=== PATIENT | male | born 1995 | race Caucasian/White ===

== ENCOUNTER 2021-09-12 16:36 | Inpatient (IN) | payer MEDICAID, SELFPAY ==
[2021-09-12 16:37] VITALS: BP 120/73; PULSE 132; RESP 18; TEMP 36.8; BMI 22.8
--- NOTE | 2021-09-12 16:49 | EX.ED.SAOD ---
HPI History of Present Illness Chief Complaint: Substance Abuse Informant: patient Narrative Narrative: Patient presents requesting help with detox from heroin. He has been using intermittently for the past 5 years. He was recently through 1 detox program and was clean for 6 months. He snorts heroin and denies injecting any drugs. He states he has recently been using some meth as well. He denies alcohol use. 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 He states he was cleared by cardiology a year ago and taken off all of his cardiac medications. [facility] Medical History Myocarditis Allergy/AdvReac Type Severity Reaction Status Date / Time No Known Allergies Allergy Verified 09/12/21 16:39 Social History (Updated 09/12/21 @ 16:[address] Heather Wild MD) alcohol intake: never substance use type: heroin and methamphetamine ROS ROS ED Constitutional Constitutional ED: Denies chills or fever(s) Eyes Eyes: Denies change in vision or discharge from eye(s) ENT ENT ED: Denies discharge from eye(s), rhinorrhea or sore throat Cardiovascular Cardiovascular: Denies chest pain or palpitations Respiratory/Chest Respiratory/Chest: Denies cough or dyspnea Gastrointestinal Gastrointestinal: Denies abdominal pain, diarrhea, nausea or vomiting Genitourinary Genitourinary ED: Denies difficulty urinating or dysuria Musculoskeletal Musculoskeletal: Denies back pain or extremity pain Integumentary Denies Abrasions or rash Neurologic Neurologic: Denies headache(s) or weakness Psychiatric Psychiatric: Reports anxiety; Denies depression Allergic/Immunologic Allergic/Immunologic ED: Denies lip swelling or urticaria EXAM Physical Exam Const Vital Signs: 09/12/21 16:37 09/12/21 16:37 Temperature 98.2 F 98.2 F Temperature Source Temporal Temporal Pulse Rate 132 H 132 H Respiratory Rate 18 18 Blood Pressure 120/73 120/73 Blood Pressure Mean 88 88 Positive well nourished and well developed General Appearance ED: well developed HEENT Reports normocephalic and head/scalp atraumatic Eyes PERRL and EOMs intact bilaterally Neck supple Chest Wall inspection of chest normal and palpation of chest normal Resp normal respiratory effort and clear to auscultation bilaterally Cardio regular rhythm Rate: tachycardic GI normal to inspection, nondistended, normoactive bowel sounds Palpation: soft Back/Spine no CVA tenderness Extremity normal to inspection Neuro oriented x3 and no sensory deficits noted Sensorium / Orientation: alert Motor Exam: strength 5/5 throughout Psych mental status grossly normal Skin no rashes or lesions noted MDM MDM MDM Narrative Medical decision making narrative: Patient agrees to the rules of the detox program. Lab work for addiction medicine is obtained. Lab Data Labs: Laboratory Results - last 24 hr 09/12/21 17:03 WBC 9.3 RBC 4.72 Hgb 14.7 Hct 42.9 MCV 90.9 MCH 31.1 MCHC 34.3 RDW Std Deviation 41.0 RDW Coeff of David 12.3 Plt Count 399 MPV 9.0 Immature Gran % (Auto) 0.300 Neut % (Auto) 65.0 Lymph % (Auto) 25.2 [place] % (Auto) 6.7 Eos % (Auto) 2.0 Baso % (Auto) 0.8 Absolute Neuts (auto) 6.0 Absolute Lymphs (auto) 2.34 Nucleated RBC % 0 Treatment and Re-Evaluation Narrative: I spoke with the hospitalist and patient be admitted to the MedSur floor. Discharge Plan Triage Chief Complaint: Substance Abuse ED Provider: Heather iWld Dx/Rx/DC Orders Clinical Impression: Desire for detoxification Primary Care Provider: Care Physician,No Primary Referrals: Care Physician,No Primary [Primary Care Provider] - Disposition Disposition: Acute Care Hospital [facility]
--- NOTE | 2021-09-12 16:56 | PCM.HP.STD ---
Documented by User: Dr. 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 Patient states has been using since he was proximately 17 or 18 years old. He initially started with snorting Dilaudid and then progressed quickly to heroin. He also has intermittently used methamphetamines and states he is using them as of recently. He has gone through detox previously and was sober for about 6 months but unfortunately relapsed due to social and emotional stressors. He reports his last use was approximately 2 days ago. He is currently experiencing some back pain, anxiety, and restless leg with a jittery feeling. Upon arrival to emergency department his vital signs showed a temperature of 98.2, blood pressure 120/73, heart rate 132, respiration rate 18, and oxygen sat was 98% room air. His CBC was unremarkable. Chemistry panel showed transaminitis with an AST of 55 and ALT of 105. His alcohol level was normal and a urine tox screen was pending IT FIELD TECHNICIAN Student Patient states that he started to use Dilaudid when he was 17 or 18, but quickly transition to using only heroin. Patient states that he has also used methamphetamine intermittently in the past, and reports he had a previous diagnosis of myocarditis related to this. The patient states that he was cleared by cardiology a year ago and taken off all of his cardiac medications. As of recently, patient states that he has once again started using meth as well. Patient states that he has only ever snorted these substances, and adamantly denies any IV use. Patient states his last use of both meth and heroin was 2 days ago. Patient states that he uses 1 g at least of each of these daily. Symptomatically, the patient's only complaints are of feeling jittery and a lower back ache, which he says is always associated with his withdrawal. The patient also notes that he recently went through a detox program in [place] and was clean for 6 months. On arrival to the emergency department, the the patient's vital signs were temperature of 98.2 Fahrenheit, blood pressure 120/73, heart rate 132, respirations of 18, and oxygen saturation 98% on room air. Patient's CBC is unremarkable. Chemistry panel shows slight elevation in transaminases with AST of 55 and ALT of 105. Alcohol is negative. Urine drug screen is pending. [facility] Medical History Myocarditis Home Medications NK 09/12/21 [History Last Taken Unknown] Allergy/AdvReac Type Severity Reaction Status Date / Time No Known Allergies Allergy Verified 09/12/21 16:39 Family History no significant family his no significant family history Surgical History no surgical history no surgical history Social History household members: other details: Mother housing: house current occupational status: employed current occupation: laborer plumbing Smoking Status: Current every day smoker tobacco type: cigarettes Smoking packs per day: 0.5 Smoking cigarettes per day: 10.0 alcohol intake: never substance use type: heroin and methamphetamine ROS Constitutional Constitutional: Denies anorexia, change in weight, chills, fatigue, fever(s), malaise, night sweats, weakness or other Eyes Eyes: Denies blurry vision, change in eye color, change in vision, discharge from eye(s), double vision, erythema, eye pain, loss of vision or other ENT HEENT: Denies abnormal hearing, dysphagia, ear pain, epistaxis, headache(s), hearing loss, nasal congestion, nasal discharge, post nasal drip, sinus pressure, sore throat or other Cardiovascular Cardiovascular: Denies chest pain, claudication, dyspnea on exertion, edema, lightheadedness, orthopnea, palpitations, paroxysmal nocturnal dyspnea, rapid heart rate, syncope or other Respiratory/Chest Respiratory/Chest: Denies dyspnea, excessive phlegm production, hemoptysis, productive cough, shortness of breath at rest, shortness of breath with exertion, wheezing or other Gastrointestinal Gastrointestinal: Denies abdominal pain, coffee ground emesis, constipation, diarrhea, dyspepsia, hematemesis, hematochezia, loose stools, melena, nausea, vomiting or other Genitourinary Genitourinary: Denies burning urination, difficulty urinating, dysuria, hematuria, nocturia, urinary frequency, urinary hesitancy, urinary incontinence, urinary urgency or other Musculoskeletal Musculoskeletal: Reports back pain and other Details: Restless leg ; Denies arthralgias, joint pain, joint stiffness, joint swelling, myalgias or neck pain Neurologic Neurologic: Denies abnormal gait, abnormal speech, confusion, disequilibrium, dizziness, focal weakness, headache(s), numbness, paresthesias, seizure-like activity, seizures, syncope, tingling, tremor(s) or other Psychiatric Psychiatric: Reports anxiety and other Details: Complains of being jittery ; Denies depression, homicidal ideation or suicidal ideation Endocrine Endocrinology: Denies change in body appearance, cold intolerance, excessive sweating, heat intolerance, polydipsia, polyuria or other Hematologic/Lymphatic Hematologic/Lymphatic: Denies anemia, easy bleeding, easy bruising, lymphadenopathy or other Allergic/Immunologic Allergic/Immunologic: Denies rhinitis, hives, eczemia, asthma or other Vital Signs Vital Signs Vital Signs: 09/12/21 16:37 09/12/21 16:37 Temperature 98.2 F 98.2 F Temperature Source Temporal Temporal Pulse Rate 132 H 132 H Respiratory Rate 18 18 Blood Pressure 120/73 120/73 Blood Pressure Mean 88 88 Weight Weight: 53.2 kg Body Mass Index (BMI) 22.8 Physical Exam Const alert, oriented x3, no apparent distress, average body habitus, healthy appearing and well nourished Constitutional Narrative: Young, white male sitting up in bed, alert and interactive. Patient appears comfortable and nontoxic. General Appearance: cooperative HEENT normocephalic, head/scalp atraumatic, hearing grossly normal bilaterally, moist oral mucous membranes and oropharynx normal HEENT Narrative: Very poor dentition. Mallampati 2. No thrush. Resp normal respiratory effort, no retractions, no use of accessory muscles and clear to auscultation bilaterally Auscultation: Negative for crackles, rales, rhonchi or wheezes GI normal to inspection, nondistended, normoactive bowel sounds, soft to palpation, non-tender and non-distended; Negative for hepatosplenomegaly Extremity normal to inspection, full ROM and no clubbing, cyanosis or edema Skin no rashes or lesions noted, no wounds, skin turgor normal, no jaundice, no petechiae and no mottling Neuro oriented x3, CN's II-XII intact bilaterally, moves all extremities and no focal motor deficits Neuro Narrative: No sensory deficits Speech: speech normal Motor Exam: strength 5/5 throughout Psych affect normal Mood & Affect: anxious; Negative for depressed Results Lab / Micro Data Result Diagrams: 09/12/21 17:03 09/12/21 17:03 Assessment & Plan Assessment/Plan (1) Desire for detoxification: (2) Opiate abuse, continuous: (3) Heroin abuse: (4) Methamphetamine abuse: (5) Tobacco abuse: (6) Transaminitis: PLAN: Plan Dr. Christie Opiate detox/acute opiate withdrawal -Patient uses both heroin and methamphetamines -Always has snorted denies any history of IVDU -Last use was 2 days prior -Typically uses about 1 g daily -Start Subutex per COWS protocol -Tox screen is pending -Supportive medications -180 consultation Transaminitis -Etiology unclear -Patient adamantly denies history of IVDU -Repeat in a.m. -If remains elevated may need further work-up Tobacco abuse -Patient typically smokes 1/2 pack cigarettes a day -Recommend cessation -Nicotine patch 14 mg daily History of myocarditis -Patient has been cleared by cardiology and no longer is on and make medication -Patient reports this was from previous meth use DVT prophylaxis -Low risk -SCDs CODE STATUS -full code Charges/Coding Visit Charges Inpatient E&M: 91502 Init Hosp L2 Documented by User: FRANCIS DE LA CRUZ 09/12/21 18:46 HPI - General General Date of Admission: 09/12/21 Date of Service: 09/12/21 HPI Narrative MALIHA CHURCHILL, is a 25 M who presents to [facility] emergency department on 09/12/2021 requesting opiate detox. Patient states that he started to use Dilaudid when he was 17 or 18, but quickly transition to using only heroin. Patient states that he has also used methamphetamine intermittently in the past, and reports he had a previous diagnosis of myocarditis related to this. The patient states that he was cleared by cardiology a year ago and taken off all of his cardiac medications. As of recently, patient states that he has once again started using meth as well. Patient states that he has only ever snorted these substances, and adamantly denies any IV use. Patient states his last use of both meth and heroin was 2 days ago. Patient states that he uses 1 g at least of each of these daily. Symptomatically, the patient's only complaints are of feeling jittery and a lower back ache, which he says is always associated with his withdrawal. The patient also notes that he recently went through a detox program in [place] and was clean for 6 months. On arrival to the emergency department, the the patient's vital signs were temperature of 98.2 Fahrenheit, blood pressure 120/73, heart rate 132, respirations of 18, and oxygen saturation 98% on room air. Patient's CBC is unremarkable. Chemistry panel shows slight elevation in transaminases with AST of 55 and ALT of 105. Alcohol is negative. Urine drug screen is pending. [facility] Medical History Myocarditis Home Medications NK 09/12/21 [History Last Taken Unknown] Allergy/AdvReac Type Severity Reaction Status Date / Time No Known Allergies Allergy Verified 09/12/21 16:39 Family History no significant family his Surgical History no surgical history Social History household members: other details: Mother housing: house current occupational status: employed current occupation: laborer plumbing Smoking Status: Current every day smoker tobacco type: cigarettes Smoking packs per day: 0.5 Smoking cigarettes per day: 10.0 alcohol intake: never substance use type: heroin and methamphetamine ROS Constitutional Constitutional: Denies anorexia, change in weight, chills, fatigue, fever(s), malaise, night sweats, weakness or other Eyes Eyes: Denies blurry vision, change in eye color, change in vision, discharge from eye(s), double vision, erythema, eye pain, loss of vision or other ENT HEENT: Denies abnormal hearing, dysphagia, ear pain, epistaxis, headache(s), hearing loss, nasal congestion, nasal discharge, post nasal drip, sinus pressure, sore throat or other Cardiovascular Cardiovascular: Denies chest pain, claudication, dyspnea on exertion, edema, lightheadedness, orthopnea, palpitations, paroxysmal nocturnal dyspnea, rapid heart rate, syncope or other Respiratory/Chest Respiratory/Chest: Reports cough; Denies dyspnea, excessive phlegm production, hemoptysis, productive cough, shortness of breath at rest, shortness of breath with exertion, wheezing or other Gastrointestinal Gastrointestinal: Denies abdominal pain, coffee ground emesis, constipation, diarrhea, dyspepsia, hematemesis, hematochezia, loose stools, melena, nausea, vomiting or other Musculoskeletal Musculoskeletal: Reports back pain; Denies arthralgias, joint pain, joint stiffness, joint swelling, myalgias, neck pain or other Neurologic Neurologic: Denies abnormal gait, abnormal speech, confusion, disequilibrium, dizziness, focal weakness, headache(s), numbness, paresthesias, seizure-like activity, seizures, syncope, tingling, tremor(s) or other Psychiatric Psychiatric: Reports anxiety and other Details: Complains of feeling jittery. ; Denies depression, homicidal ideation or suicidal ideation Endocrine Endocrinology: Denies change in body appearance, cold intolerance, excessive sweating, heat intolerance, polydipsia, polyuria or other Hematologic/Lymphatic Hematologic/Lymphatic: Denies anemia, easy bleeding, easy bruising, lymphadenopathy or other Allergic/Immunologic Allergic/Immunologic: Denies rhinitis, hives, eczemia, asthma or other Physical Exam Const alert, oriented x3, no apparent distress and average body habitus Constitutional Narrative: Young, white male sitting up in bed, alert and interactive. Patient appears comfortable and nontoxic. Patient's giving officer present at bedside. General Appearance: cooperative HEENT normocephalic, head/scalp atraumatic, hearing grossly normal bilaterally, moist oral mucous membranes and oropharynx normal HEENT Narrative: Poor dentition. Mallampati 2. No thrush. Eyes PERRL, EOMs intact bilaterally and conjunctivae normal Eyes Narrative: No scleral icterus. Neck no lymphadenopathy, supple, no JVD and no carotid bruits Neck Narrative: Trachea midline, no thyroid enlargement. Resp normal respiratory effort, no retractions, no use of accessory muscles and clear to auscultation bilaterally Auscultation: Negative for crackles, rales, rhonchi or wheezes Cardio regular rhythm, S1 normal heart sound, S2 normal heart sound, no murmurs, no rub, no gallops, no clicks and no JVD Cardio Narrative: Tachycardic. GI normal to inspection, nondistended, normoactive bowel sounds, soft to palpation, non-tender and non-distended; Negative for hepatosplenomegaly Palpation: Negative for tender, guarding or hernia Extremity normal to inspection, full ROM and no clubbing, cyanosis or edema Extremity Narrative: Peripheral pulses 2+ bilaterally. Skin no rashes or lesions noted, no wounds, skin turgor normal, no jaundice, no petechiae and no mottling Skin Narrative: Numerous tattoos. Neuro oriented x3, CN's II-XII intact bilaterally, moves all extremities and no focal motor deficits Speech: speech normal Motor Exam: strength 5/5 throughout Psych affect normal Psych Narrative: Patient is a pleasant, and cooperative. Appears somewhat anxious. Mood & Affect: anxious; Negative for depressed Results Lab / Micro Data Attestation: I reviewed the patient's lab results. Result Diagrams: 09/12/21 17:03 09/12/21 17:03 Assessment & Plan Assessment/Plan (1) Desire for detoxification: (2) Opiate abuse, continuous: (3) Heroin abuse: (4) Methamphetamine abuse: (5) Tobacco abuse: (6) Transaminitis: PLAN: Plan Dr. Christie Opiate detox/acute opiate withdrawal -Patient uses both heroin and methamphetamines -Always has snorted denies any history of IVDU -Last use was 2 days prior -Typically uses about 1 g daily -Start Subutex per COWS protocol -Tox screen is pending -Supportive medications -180 consultation Transaminitis -Etiology unclear -Patient adamantly denies history of IVDU -Repeat in a.m. -If remains elevated may need further work-up Tobacco abuse -Patient typically smokes 1/2 pack cigarettes a day -Recommend cessation -Nicotine patch 14 mg daily History of myocarditis -Patient has been cleared by cardiology and no longer is on and make medication -Patient reports this was from previous meth use DVT prophylaxis -Low risk - IT FIELD TECHNICIAN Student Desire for detoxification ? Drugs of choice are heroin and methamphetamine ? Route of use is snorting ? Uses 1 g of each daily ? Last use for each 2 days ago ? Symptoms include feeling anxious/jittery and backache ? Start Subutex per COWS protocol ? Tox screen pending ? Supportive meds ? 180 consult Transaminitis ? AST 55, ALT 105 ? Unclear etiology ? Repeat liver panel in a.m. ? Follow-up as outpatient Tobacco abuse ? Typically smokes half pack per day ? Nicotine patch ? Encourage cessation History of myocarditis ? Patient states he was cleared by cardiology and taken off all of his cardiac meds ? Patient is tachycardic but denies any other symptoms of chest pain, dyspnea, fever DVT Prophylaxis ? Low risk ? SCDsl CODE STATUS ? Full code
[2021-09-12 17:13] LABS: Absolute Lymphocyte Count 2.34 X10^3/uL (0.83-4.51); Basophil# 0.07 X10^3/uL; Basophil% 0.8 % (0-1); Eosinophil# 0.19 X10^3/uL; Hematocrit 42.9 % (40-54); Hemoglobin 14.7 g/dL (13.0-16.5); Lymphocyte # 2.34 X10^3/ul (0.83-4.51); Lymphocyte % 25.2 % (19-41); Mean Corp Hgb Conc 34.3 g/dL (32-36); Mean Corpuscular Hgb 31.1 pg (27.0-32.0); Mean Corpuscular Volume 90.9 fL (80-94); Monocyte# 0.62 X10^3/uL; Monocyte% 6.7 % (0-10); NRBC Flagged by Analyzer 0 % (0-5); Neutrophil # 6.02 X10^3/uL (2.7-7.7); Platelet Count 399 K/mm3 (150-450); RBC Distribution Width CV 12.3 % (11.6-14.6); Red Blood Count 4.72 M/mm3 (4.6-6.2); White Blood Count 9.3 K/mm3 (4.4-11.0)
--- NOTE | 2021-09-12 17:19 | CM.ED ---
Addendum entered by Shreya Grimes 09/12/21 17:40: SW placed a call to Brenda, addiction therapist, and provided referral. Original Note: Social Work Note Reason for Referral: DETOX SW reviewed chart. Pt is at [facility] for Detox. SW in to speak with pt. Pt confirms he is at [facility] for detox/RAMP program. Pt states that he has been educated on the rules. SW informed pt that an addiction therapist will meet with pt. Pt states understanding. SW to call treatment navigator to update. Shreya Griems CLOTH CALENDER, CUSTOM FRAME ASSEMBLER
--- NOTE | 2021-09-12 17:24 | ED.RN ---
Pts IV dC'd. cath intact at Dr Christie's request.
--- NOTE | 2021-09-12 17:30 | NURSING ---
MED SURG [facility]ERNA[facility]O HEROIN DETOX
[2021-09-12 17:33] LABS: ALB/GLOB Ratio 1.4 RATIO (0.9-2.4); AST(SGOT) 55 U/L (15-37); Alanine Aminotransfer ALT/SGPT 105 U/L (16-61); Albumin, Serum 4.3 g/dL (3.2-5.0); Alkaline Phosphatase 88 U/L (45-117); Anion Gap 8 (5-15); BUN 18 mg/dL (7-18); BUN/Creat Ratio 15.4 RATIO (10-20); Calcium,Total 9.7 mg/dL (8.5-10.1); Chloride 109 mmol/L (98-107); Creatinine, Serum 1.17 mg/dL (0.70-1.30); EST Glomerular Filtration Rate 80 mL/min (>60); Est Glom Filt Rate - Afr Amer 97 mL/min (>60); Estimated Creatinine Clearance 68.26 ml/min; Globulin 3.1 g/dL (2.2-4.2); Glucose 116 mg/dL (74-106); Protein, Total 7.4 g/dL (6.4-8.2); Sodium Level 142 mmol/L (136-145)
[2021-09-12 17:39] VITALS: BP 120/73; PULSE 132; RESP 18; TEMP 36.8; O2SAT 98
[2021-09-12 17:43] LABS: Alcohol, Blood (Medical)-Serum < 3.0 mg/dL
[2021-09-12 17:59] VITALS: BMI 22.8
[2021-09-12 18:25] VITALS: BP 118/71; PULSE 99; RESP 16; TEMP 37.4; O2SAT 99
[2021-09-12] MEDS: Acetaminophen 325 MG Tablet 650 MG PO (18:39)
[2021-09-12 23:26] VITALS: BP 117/73; PULSE 76; RESP 16; TEMP 36.6; O2SAT 99
[2021-09-13 04:50] VITALS: BP 108/75; PULSE 76; RESP 16; TEMP 36.9; O2SAT 100
[2021-09-13] MEDS: Methocarbamol 750 MG Tablet 1500 MG PO ×3 (05:00→21:36)
[2021-09-13] MEDS: hydrOXYzine PAM 25 MG Capsule 50 MG PO ×3 (05:00→21:37)
[2021-09-13] MEDS: Acetaminophen 325 MG Tablet 650 MG PO (05:00)
[2021-09-13] MEDS: Buprenorphine HCl 2 MG TAB.SUBL SL ×3 (06:39→21:37)
--- NOTE | 2021-09-13 07:09 | PCM.PN.HOSP ---
Subjective Subjective No issues right COWS score of 8. Objective Data Objective Data Vital Signs: Vital Signs Temp Pulse Resp BP Pulse Ox O2 Del Method 98.4 F 76 16 108/75 100 Room Air 09/13/21 04:50 09/13/21 04:50 09/13/21 04:50 09/13/21 04:50 09/13/21 04:50 09/13/21 04:50 Oxygen Delivery Method Room Air Weight: 117 lb 4.575 oz Body Mass Index (BMI) 22.8 Lab / Micro Data Result Diagrams: 09/12/21 17:03 09/12/21 17:03 Labs: Laboratory Results - last 24 hr 09/12/21 17:03: WBC 9.3, RBC 4.72, Hgb 14.7, Hct 42.9, MCV 90.9, MCH 31.1, MCHC 34.3, RDW Std Deviation 41.0, RDW Coeff of David 12.3, Plt Count 399, MPV 9.0, Immature Gran % (Auto) 0.300, Neut % (Auto) 65.0, Lymph % (Auto) 25.2, [place] % (Auto) 6.7, Eos % (Auto) 2.0, Baso % (Auto) 0.8, Absolute Neuts (auto) 6.0, Absolute Lymphs (auto) 2.34, Nucleated RBC % 0 09/12/21 17:03: Sodium 142, Potassium 4.0, Chloride 109 H, Carbon Dioxide 25.0, Anion Gap 8, BUN 18, Creatinine 1.17, Estim Creat Clear Calc 68.26, Est GFR (MDRD) Af Amer 97, Est GFR (MDRD) Non-Af 80, BUN/Creatinine Ratio 15.4, Glucose 116 H, Calcium 9.7, Total Bilirubin 0.50, AST 55 H, ALT 105 H, Alkaline Phosphatase 88, Total Protein 7.4, Albumin 4.3, Globulin 3.1, Albumin/Globulin Ratio 1.4 09/12/21 17:03: Ethyl Alcohol < 3.0 Physical Exam Narrative General: Alert, Oriented x3, Cooperative, No apparent distress HEENT: Atraumatic, PERRLA, EOMI, Normocephalic Oral: Moist Mucosa Neck: Supple, No JVD Lungs: Clear to auscultation, Normal air movement, No rhonchi, No wheeze, No rales Cardiovascular: Regular rate, Regular Rhythm, Normal S1, Normal S2, No murmurs Abdomen: Soft, Non Tender, Non-Distended, No Hepato-splenomegaly Extremities: No edema, Capillary Refill Less than 3 Seconds Skin: No rashes, No breakdown Musculoskeletal: No Tenderness to Palpation of Joints or Extremities Neurological: Cranial nerves II-XII grossly intact, Motor Exam 5/5 strength throughout, Sensory exam intact to light touch and pain Psych/Mental Status: Normal Affect, mild anxiety Assessment & Plan Assessment/Plan (1) Desire for detoxification: (2) Opiate abuse, continuous: (3) Heroin abuse: (4) Methamphetamine abuse: (5) Tobacco abuse: (6) Transaminitis: PLAN: Plan 1. Acute opiate withdrawal requesting detox/transaminitis/tobacco abuse/history of myocarditis ? Continue with the opiate withdrawal protocol ? We will have him follow-up with 180 to develop an outpatient plan ? LFTs were elevated on admission repeat pending ? Unsure if his myocarditis is due to a drug use as he denies IV drug use, he states it was from previous meth use ? Continue with nicotine patch DVT: Ambulation Charges/Coding Visit Charges Inpatient E&M: 22009 Subs Hosp L2
[2021-09-13 07:31] LABS: AST(SGOT) 49 U/L (15-37); Alanine Aminotransfer ALT/SGPT 91 U/L (16-61); Albumin, Serum 3.7 g/dL (3.2-5.0); Alkaline Phosphatase 76 U/L (45-117); Bilirubin, Direct 0.06 mg/dL (0.00-0.30); Globulin 2.5 g/dL (2.2-4.2); Protein, Total 6.2 g/dL (6.4-8.2)
[2021-09-13 10:26] VITALS: BP 110/70; PULSE 82; RESP 16; TEMP 36.7; O2SAT 99
[2021-09-13 14:44] VITALS: BP 120/72; PULSE 88; RESP 16; TEMP 37; O2SAT 98
[2021-09-13] MEDS: Dicyclomine 10 MG Capsule 20 MG PO (14:50)
[2021-09-13 20:01] VITALS: BP 117/72; PULSE 90; RESP 18; TEMP 37.1; O2SAT 98
[2021-09-14 02:16] VITALS: BP 101/70; PULSE 77; RESP 18; TEMP 36.4; O2SAT 100
[2021-09-14] MEDS: cloNIDine HCl 0.1 MG Tablet PO (02:22)
[2021-09-14] MEDS: Buprenorphine HCl 2 MG TAB.SUBL SL ×3 (05:45→21:37)
--- NOTE | 2021-09-14 08:29 | PCM.PN.HOSP ---
Subjective Subjective Doing well, no issues overnight.Cina score of 4 Objective Data Objective Data Vital Signs: Vital Signs Temp Pulse Resp BP Pulse Ox O2 Del Method 97.6 F L 77 18 101/70 100 Room Air 09/14/21 02:16 09/14/21 02:16 09/14/21 02:16 09/14/21 02:16 09/14/21 02:16 09/14/21 02:16 Oxygen Delivery Method Room Air Weight: 117 lb 4.575 oz Body Mass Index (BMI) 22.8 Lab / Micro Data Result Diagrams: 09/12/21 17:03 09/12/21 17:03 Physical Exam Narrative General: Alert, Oriented x3, Cooperative, No apparent distress HEENT: Atraumatic, PERRLA, EOMI, Normocephalic Oral: Moist Mucosa Neck: Supple, No JVD Lungs: Clear to auscultation, Normal air movement, No rhonchi, No wheeze, No rales Cardiovascular: Regular rate, Regular Rhythm, Normal S1, Normal S2, No murmurs Abdomen: Soft, Non Tender, Non-Distended, No Hepato-splenomegaly Extremities: No edema, Capillary Refill Less than 3 Seconds Skin: No rashes, No breakdown Musculoskeletal: No Tenderness to Palpation of Joints or Extremities Neurological: Cranial nerves II-XII grossly intact, Motor Exam 5/5 strength throughout, Sensory exam intact to light touch and pain Psych/Mental Status: Normal Affect, mild anxiety Assessment & Plan Assessment/Plan (1) Desire for detoxification: (2) Opiate abuse, continuous: (3) Heroin abuse: (4) Methamphetamine abuse: (5) Tobacco abuse: (6) Transaminitis: PLAN: Plan 1. Acute opiate withdrawal requesting detox/transaminitis/tobacco abuse/history of myocarditis ? Continue with the opiate withdrawal protocol ? We will have him follow-up with 180 to develop an outpatient plan ? LFTs were elevated on admission however repeat demonstrates it is trending down ? Unsure if his myocarditis is due to a drug use as he denies IV drug use, he states it was from previous meth use ? Continue with nicotine patch DVT: Ambulation Charges/Coding Visit Charges Inpatient E&M: 77755 Subs Hosp L2
[2021-09-14 09:37] VITALS: BP 107/68; PULSE 82; RESP 18; TEMP 36.7; O2SAT 98
--- NOTE | 2021-09-14 13:48 | CHAPLAIN ---
Type of Pastoral Visit _x__ Initial Visit ___ Follow-up Visit ___ On-call Visit ___ General Patient Visit ___ Spiritual Assessment ___ Family Conference ___ Bereavement ___ Rapid Response ___ Code Blue ___ Other (describe below) Pastoral Care Referral From _x__ Patient ___ Family ___ Nurse ___ Physician ___ Feather Trimmer ___ [employer] ___ Other (describe below) Sacrament/Intervention _x__ Active listening ___ Anointing ___ Gnosticist ___ Bereavement ___ Communion ___ Mirlande exploration ___ ___ Life review _x__ Prayer ___ Reconciliation ___ Sacrament of Sick _x__ Supportive presence ___ Wedding ___ Other (describe below) Pastoral Comments patient was sleeping but awakened easily to his name; pt rubs his eyes for a bit and then interacts with this integration architect; pt gives reason for his admission and that he needs to make a change; pt states that he has two children that need him in their lives; 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
[2021-09-14 14:09] VITALS: BP 106/62; PULSE 71; RESP 18; TEMP 36.9; O2SAT 98
[2021-09-14] MEDS: Acetaminophen 325 MG Tablet 650 MG PO (18:11)
[2021-09-14 21:22] VITALS: BP 99/65; PULSE 77; RESP 16; TEMP 36.9; O2SAT 98
[2021-09-14] MEDS: traZODone 100 MG Tablet PO (21:37)
[2021-09-14] MEDS: Gabapentin 300 MG Capsule PO (21:37)
[2021-09-14] MEDS: Methocarbamol 750 MG Tablet 1500 MG PO (21:37)
[2021-09-15 05:46] VITALS: BP 89/61; PULSE 73; RESP 16; TEMP 36.6; O2SAT 96
[2021-09-15] MEDS: Methocarbamol 750 MG Tablet 1500 MG PO (05:50)
[2021-09-15] MEDS: Buprenorphine HCl 2 MG TAB.SUBL SL (05:50)
--- NOTE | 2021-09-15 08:30 | DCINST_ITS ---
Discharge Instructions Diet Discharge Diet: No restrictions Activity Discharge Activity: Return to Normal Activity Dressing / Incision Call your doctor if you observe: Fever of 101 or Higher, Shortness of breath, Dizziness, Fainting spells, Swelling in the ankles, Chest pain and Increased palpitations (irregular heartbeat) Follow Up Care Test Results: Test results from this visit will be discussed in further detail at your follow- up appointment, if applicable. Discharge Plan Admission Admit Date/Time: 09/12/21 17:33 Attending Provider: Christiano Joseph Primary Care Provider: Care Physician,Mary Beth Primary Consulting Providers: Vaishali Christie Discharge Orders/Prescriptions Prescriptions: No Action NK Referrals / Follow Up: Care Physician,No Primary [Primary Care Provider] - Disposition Disposition (needs filled in before D/C Order can be placed): Home, Self Care
--- NOTE | 2021-09-15 08:33 | DS.PCM_ITS ---
Providers Date of Admission: 09/12/21 Primary Care Physician: No Primary Care Phys Reason For Visit: OPIATE DETOX Diagnosis Discharge Diagnosis (1) Desire for detoxification: Status: Acute (2) Opiate abuse, continuous: Status: Acute Code(s): F11.10 - Opioid abuse, uncomplicated (3) Heroin abuse: Status: Acute Code(s): F11.10 - Opioid abuse, uncomplicated (4) Methamphetamine abuse: Status: Acute Code(s): F15.10 - Other stimulant abuse, uncomplicated (5) Tobacco abuse: Status: Acute Code(s): Z72.0 - Tobacco use (6) Transaminitis: Status: Acute Code(s): R74.01 - Elevation of levels of liver transaminase levels Plan 1. Acute opiate withdrawal requesting detox/transaminitis/tobacco abuse/history of myocarditis ? Continue with the opiate withdrawal protocol ? We will have him follow-up with 180 to develop an outpatient plan ? LFTs were elevated on admission however repeat demonstrates it is trending down ? Unsure if his myocarditis is due to a drug use as he denies IV drug use, he states it was from previous meth use ? Continue with nicotine patch DVT: Ambulation Medications at Discharge Home Medications NK 09/12/21 Hospital Course Operations None Procedures None Summary of Care Provided Minutes Spent on Discharge: 39 Hospital Course: Per HPI: MALIHA CHURCHILL, is a 25 M who presents to [facility] emergency department on 09/12/2021 requesting opiate detox.? Patient states has been using since he was proximately 17 or 18 years old.? He initially started with snorting Dilaudid and then progressed quickly to heroin.? He also has intermittently used methamphetamines and states he is using them as of recently.? He has gone through detox previously and was sober for about 6 months but unfortunately relapsed due to social and emotional stressors.? He reports his last use was approximately 2 days ago.? He is currently experiencing some back pain, anxiety, and restless leg with a jittery feeling. Upon arrival to emergency department his vital signs showed a temperature of 98.2, blood pressure 120/73, heart rate 132, respiration rate 18, and oxygen sat was 98% room air.? His CBC was unremarkable.? Chemistry panel showed transaminitis with an AST of 55 and ALT of 105.? His alcohol level was normal and a urine tox screen was pending Hospital Course: 1. Acute opiate withdrawal/transaminitis/tobacco abuse/history of myocarditis? 25-year-old male who presents to the hospital requesting detox from opiates. He states that he never injects that he only snorts. He had been sober for about 6months but started using again because of social and emotional stressors. He was found to have elevated LFTs on admission however on repeat they were improving but I do recommend that he follow-up with the primary care physicians as an outpatient for monitoring. I discussed with him the plan for discharge today he expressed understanding of the risk benefits of going home and he would like to go home today. He is aware that he needs to wait for 180 to come and see him and to establish an outpatient plan for continued therapy to hopefully prevent relapse in the future. Physical Exam Narrative General: Alert, Oriented x3, Cooperative, No apparent distress HEENT: Atraumatic, PERRLA, EOMI, Normocephalic Oral: Moist Mucosa Neck: Supple, No JVD Lungs: Clear to auscultation, Normal air movement, No rhonchi, No wheeze, No rales Cardiovascular: Regular rate, Regular Rhythm, Normal S1, Normal S2, No murmurs Abdomen: Soft, Non Tender, Non-Distended, No Hepato-splenomegaly Extremities: No edema, Capillary Refill Less than 3 Seconds Skin: No rashes, No breakdown Musculoskeletal: No Tenderness to Palpation of Joints or Extremities Neurological: Cranial nerves II-XII grossly intact, Motor Exam 5/5 strength throughout, Sensory exam intact to light touch and pain Psych/Mental Status: Normal Affect Weight / BMI Weight Weight: 117 lb 4.575 oz Body Mass Index (BMI) 22.8 ABG / Lab / Microbiology Data Result Diagrams: 09/12/21 17:03 09/12/21 17:03 D/C Instructions Discharge Diet: No restrictions Call your doctor if you observe: Fever of 101 or Higher, Shortness of breath, Dizziness, Fainting spells, Swelling in the ankles, Chest pain and Increased palpitations (irregular heartbeat) Meaningful Use Info Meaningful Use Diagnoses (Choose all that apply): None applicable Discharge Plan Admission Admit Date/Time: 09/12/21 17:33 Attending Provider: Christiano Joseph Primary Care Provider: Care Physician,No Primary Consulting Providers: Vaishali Christie Discharge Orders/Prescriptions Prescriptions: No Action NK Referrals / Follow Up: Care Physician,No Primary [Primary Care Provider] - Disposition Disposition (needs filled in before D/C Order can be placed): Home, Self Care Charges/Coding Visit Charges Inpatient E&M: 10231 Disch Hosp
[2021-09-15 09:32] VITALS: BP 107/75; PULSE 94; RESP 16; TEMP 36.9; O2SAT 98
--- NOTE | 2021-09-15 11:07 | ADDICTION ---
This automatic typewriter inspector met with PT to conduct ASAM, MSE, AUDIT, DUDIT assessments and to plan for d/c. PT A+Ox4 and participated actively. All assessments completed and placed in PT's chart. PT plans to f/u with [facility] for follow-up in-patient treatment services if approved. PT's warehouse shipping clerk will provide transportation post d/c from [facility].
== END 2021-09-15 12:05 | disposition home or self-care (01) | DRG 773 ==
LOC: ED 17:40 → MS3 17:42
PROVIDERS: Admitting Provider Internal Medicine; Emergency Provider Emergency Medicine; Visit Provider Family Medicine
DX: F11.23 Opioid dependence with withdrawal (principal); F15.10 Other stimulant abuse, uncomplicated; F17.210 Nicotine dependence, cigarettes, uncomplicated; F41.9 Anxiety disorder, unspecified; R74.01 Elevation of levels of liver transaminase levels; Z60.9 Problem related to social environment, unspecified
CPT/HCPCS: 36415; 80053; 80076; 82077; 85025; 97802; 99283; 99406